=== PATIENT | female | born 1955 | race Caucasian/White ===

== ENCOUNTER → 2024-04-06 | Outpatient (CLI) | payer MEDICARE ==
--- NOTE | 2024-04-06 10:49 | HMCIMG ---
MR BRAIN WO CON REASON: TIA TECHNIQUE: Routine cerebral imaging protocol was performed. Exam was performed without IV contrast. STUDIES FOR COMPARISON: None. FINDINGS: There are diffusely generous ventricles and sulci. Findings are consistent with diffuse global atrophy. There are also focal areas of increased signal intensity within the deep central white matter consistent with small vessel disease. There are no focal mass lesions. There are no abnormal fluid collections. There is no evidence of intracranial hemorrhage. Diffusion-weighted images are negative for acute ischemic event. Posterior fossa and brainstem structures appear normal as well. Calvarium appears unremarkable. Extracranial soft tissues appear normal as well. IMPRESSION: 1. Diffusely generous ventricles and sulci consistent with a component of global atrophy. 2. No acute finding, no evidence of an acute ischemic event.
== END | disposition home or self-care (01) ==
LOC: RAH 07:41
PROVIDERS: ATTEND Internal Medicine Cardiovascular Disease
DX: G45.9 Transient cerebral ischemic attack, unspecified (principal)
CPT/HCPCS: 70551

== ENCOUNTER → 2024-04-09 | Outpatient (CLI) | payer MEDICARE ==
--- NOTE | 2024-04-11 14:13 | HMCSR ---
APPROVED REPORT EXAM: Two-dimensional and M-mode echocardiogram with Doppler and color Doppler. INDICATION ICD: G45.9 Transient cerebral ischemic attack, unspecified 2D Dimensions RVDd4.5 cmLVEF(%)60.5 (>50%)LVED Vol(simp.)78.4 mL IVSd1.0 (0.7-1.1cm)FS(%)33 %LVES Vol(simp.)35.3 mL LVDd5.5 (3.8-5.6cm)LA (2D)5.4 (1.6-4.0cm)LVEF(%, simp.)55 % PWd1.6 (0.7-1.1cm)LVOT diam2.2 (1.8-2.4cm)LA ESV INDEX (4CH)45.50 mL/m2 IVSs1.4 cmLA ESV INDEX (2CH)47.40 mL/m2 LVDs3.7 (2.5-4.0cm)LA ESV INDEX (BP)50.70 mL/m2 PWs1.6 cm M-Mode Dimensions LA (MM)5.6 (1.6-4.0cm) Ao Root(MM)3.3 (2.0-3.7cm) Aortic Valve AoV VTI0.4 mAo Mean GR4.0 mmHgLVOT VTI0.24 m Mitral Valve MV E Bvot392.8 cm/sDECEL Wrfs582 ms MR Max PG67 mmHgP 1/2 T65 ms MVA (PHT)3.4 cm2 TDI E/E' Fuurrc64.0E/E' Howmmtv55.5 Medial E' Peak V4.80 cm/sLateral E' Peak V5.50 cm/s Pulmonary Valve PV Vmax1.5 m/sPI End Cris. Dawson 92.3 cm/s PV Peak GR8.6 mmHg Tricuspid Valve TR Vmax2.7 m/sRAP (EST) 15 acXlTHRW27.9 mmHg TR Peak GR29.9 mmHg Left Ventricle The left ventricle is normal size. There is normal LV segmental wall motion. There is normal left nayely tricular wall thickness. The LVEF is > 55%. The left ventricular diastolic function is normal. Right Ventricle The right ventricle is normal size. Right ventricular systolic function is borderline reduced. Atria The left atrium size is normal. The right atrium size is normal. Aortic Valve Prosthetic aortic valve is present. No paravalvular/perivalvular leak noted. No aortic regurgitation is present. There is no aortic valvular stenosis. Prosthetic aortic valve normal valve gradients. Mitral Valve The mitral valve leaflets are thickened. Cannot exclude prosthetic mitral valve. There is trace of m itral valve regurgitation noted. There is no mitral valve stenosis. Tricuspid Valve The tricuspid valve is normal in structure. There is trace of tricuspid valve regurgitation noted. Pulmonic Valve The pulmonary valve is normal in structure. There is trace of pulmonic valvular regurgitation. Great Vessels The aortic root is normal in size. IVC is normal in size and collapses <50% with inspiration. Pericardium There is no pericardial effusion. Other Information Quality : Technically difficult due to body habitus Conclusion The LVEF is > 55%. There is normal LV segmental wall motion. Prosthetic aortic valve is present. No paravalvular/perivalvular leak noted. The mitral valve leaflets are thickened. Cannot exclude prosthetic mitral valve. There is no pericardial effusion.
== END | disposition home or self-care (01) ==
LOC: SHCH 12:45 → EDUNIT# 13:00
PROVIDERS: ATTEND Internal Medicine Cardiovascular Disease
DX: I05.9 Rheumatic mitral valve disease, unspecified (principal); G45.9 Transient cerebral ischemic attack, unspecified; Z95.2 Presence of prosthetic heart valve
CPT/HCPCS: 93306

== ENCOUNTER → 2024-04-18 | Outpatient (CLI) | payer MEDICARE ==
--- NOTE | 2024-04-22 08:11 | HMCSR ---
APPROVED REPORT Laterality: Bilateral Indications TIA Doppler Spectral Velocity Analysis PSV / EDVPSV / EDV ECA (R) 57 / cm/sECA (L) 71 / cm/s dICA (R) 134 / 34 cm/sdICA (L) 79 / 22 cm/s Derick (R) 112 / 26 cm/smICA (L) 78 / 20 cm/s pICA (R) 44 / 11 cm/spICA (L) 58 / 21 cm/s dCCA (R) 47 / 11 cm/sdCCA (L) 63 / 19 cm/s mCCA (R) 55 / 12 cm/smCCA (L) 84 / 21 cm/s pCCA (R) 69 / 15 cm/spCCA (L) 84 / 20 cm/s Vert (R) 41 / cm/sVert (L) 40 / cm/s Subl. (R) 118 / cm/sSubl. (L) 98 / cm/s ICA/CCA 1.94ICA/CCA 0.94 Technologist Impression Minimal plaque noted in the bilateral carotids. Right and Left ICA appear patent, without hemodynamic significance. Bilateral vertebral arteries appear antegrade. Conclusion Minimal plaque noted in the bilateral carotids, without hemodynamic significance. Bilateral vertebral arteries appear antegrade. Conclusion Minimal plaque noted in the bilateral carotids, without hemodynamic significance. Bilateral vertebral arteries appear antegrade.
== END | disposition home or self-care (01) ==
LOC: SHCH 10:00 → EDUNIT# 10:30
PROVIDERS: ATTEND Internal Medicine Cardiovascular Disease
DX: G45.9 Transient cerebral ischemic attack, unspecified (principal)
CPT/HCPCS: 93880